=== PATIENT | female | born 1955 | race Caucasian/White ===

== ENCOUNTER 2018-01-06 02:35 | Emergency (ER) | payer OTHER ==
[2018-01-06] MEDS ORDERED: Cyclobenzaprine 10 MG Tab ONE (02:50)
== END 2018-01-06 02:53 | disposition home or self-care (01) ==
LOC: LB.ED 02:35
DX: M62.838 Other muscle spasm (principal); M79.601 Pain in right arm
CPT/HCPCS: 99283; A9270